=== PATIENT | male | born 1940 | race Caucasian/White ===

== ENCOUNTER 2016-07-27 03:18 | Emergency (ER) | payer OTHER ==
[~2016-07-27] VITALS: Ht 177.8 cm; Wt 104.3 kg
--- NOTE | 2016-07-27 03:47 | ED GI/GU/ABDOMINAL COMPLAINT ---
History of Present Illness General Chief Complaint: Abdominal Pain/Flank Pain Stated Complaint: LEFT SIDE FLANK PAIN X A FEW DAYS WORSE TONIGHT Source: patient, family Exam Limitations: no limitations Vital Signs & Intake/Output Vital Signs & Intake/Output Vital Signs Date Time Temp Pulse Resp B/P Pulse O2 O2 Flow FiO2 Ox Delivery Rate 07/27 0544 98.9 79 18 156/74 96 Room Air 07/27 0333 97.6 82 18 182/96 97 Room Air Allergies Coded Allergies: NO KNOWN ALLERGIES (07/27/16) Reconcile Medications Ibuprofen 600 MG TABLET 1 TAB PO TID PRN PAIN with food Ondansetron (Zofran Odt) 4 MG TAB.RAPDIS 1 TAB SL TID PRN NAUSEA Oxycodone HCl/Acetaminophen (Percocet 5-325 MG Tablet) 5 MG-325 MG TABLET 1 TAB PO 4XDP PRN PAIN TEN...[id number] Sertraline HCl 50 MG TABLET 50 MG PO DAILY ANXIETY (Reported) Tamsulosin HCl (Flomax) 0.4 MG CAP.ER.24H 1 CAP PO DAILY KIDNEY STONE Triage Nurses Notes Reviewed? yes Onset: Gradual Duration: day(s): Timing: recent history Quality/Severity: muscle spasm in the left lower back Location: left lower back left flank Radiation: no radiation Activities at Onset: movement Prior Abdominal Problems: none Modifying Factors: Worsens With: movement, palpation. Associated Symptoms: muscle spasm HPI: 76-year-old gentleman in prior good health presents with left lower back pain for the past 3 days. He states that he saw his primary care doctor and was noted to have microscopic hematuria. He states, "I am a hypochondriac. I became very worried about this. I talked with Dr. Fajardo. He said that was probably fine. He said maybe I had a kidney stone or maybe I had a mass she get a CAT scan." He notes no dysuria nausea vomiting fever diarrhea abdominal pain chest pain shortness of breath. He is otherwise well and has no other concerns. Past History Travel History Traveled to [place] past 21 day No Medical History Any Pertinent Medical History? see below for history Surgical History Surgical History: none Psychosocial History Who do you live with Spouse Services at Home None What is your primary language Frisian Family History Hx Contributory? No Review of Systems Review of Systems Constitutional: Reports: no symptoms. EENTM: Reports: no symptoms. Respiratory: Reports: no symptoms. Cardiovascular: Reports: no symptoms. GI: Reports: no symptoms. Genitourinary: Reports: no symptoms. Musculoskeletal: Reports: no symptoms. Skin: Reports: no symptoms. Neurological/Psychological: Reports: no symptoms. Hematologic/Endocrine: Reports: no symptoms. Immunologic/Allergic: Reports: no symptoms. All Other Systems: Reviewed and Negative Physical Exam Physical Exam General Appearance: well developed/nourished, mild distress Head: atraumatic, normal appearance Eyes: Bilateral: normal appearance. Ears, Nose, Throat, Mouth: hearing grossly normal Neck: normal inspection, supple, full range of motion Respiratory: normal breath sounds, chest non-tender, no respiratory distress, quiet respiration, lungs clear Cardiovascular: regular rate/rhythm Gastrointestinal: normal bowel sounds, soft, non-tender, no organomegaly Back: muscle spasm, no vertebral tenderness, muscle spasm at left lower lumbar region. Extremities: normal range of motion Neurologic/Psych: no motor/sensory deficits, awake, alert, oriented x 3 Skin: intact, normal color, warm/dry Core Measures ACS in differential dx? No Severe Sepsis Present: No Septic Shock Present: No Progress Differential Diagnosis: muscle spasm vs kidney stone vs other. Plan of Care: Orders Procedure Date/time Status URINALYSIS 07/27 326 Complete TROPONIN LEVEL 07/27 326 Complete LIPASE 07/27 326 Complete COMPREHENSIVE METABOLIC PANEL 07/27 326 Complete CBC WITHOUT DIFFERENTIAL 07/27 326 Complete AMYLASE 07/27 326 Complete EKG 07/27 326 Active Laboratory Tests 07/27/16 0406: Anion Gap 12, Estimated GFR > 60, BUN/Creatinine Ratio 20.0, Glucose 121 H, Calcium 10.0, Total Bilirubin 0.7, AST 20, ALT 32, Alkaline Phosphatase 99, Troponin I < 0.01, Total Protein 7.5, Albumin 4.3, Globulin 3.2, Albumin/ Globulin Ratio 1.3, Amylase 86, Lipase 62, CBC w Diff NO MAN DIFF REQ, RBC 4.69 L, MCV 96.8 H, MCH 32.5 H, RDW 12.6, MPV 9.8, Gran % 78.4 H, Lymphocytes % 12.0 L, Monocytes % 8.7, Eosinophils % 0.7, Basophils % 0.2, Absolute Granulocytes 7.9 H, Absolute Lymphocytes 1.2, Absolute Monocytes 0.9 H, Absolute Eosinophils 0.1, Absolute Basophils 0, PUBS MCHC 33.6, Urinalysis LIGHT H, Urine Color ROD, Urine Clarity CLEAR, Urine pH 6.0, Ur Specific [place] >= 1.030, Urine Protein 30 H, Urine Ketones NEG, Urine Nitrite NEG, Urine Bilirubin NEG, Urine Urobilinogen 0.2, Ur Leukocyte Esterase NEG, Ur Microscopic SEDIMENT EXAMINED, Urine RBC 3-5, Urine Crystals 1+ CA OX H, Urine Bacteria FEW H, Hyaline Casts RARE H, Urine Hemoglobin MOD H, Urine Glucose NEG Diagnostic Imaging: Viewed by Me: CT Scan. Discussed w/RAD: CT Scan. Radiology Impression: abd/pelvic ct... left 4mm kidney stone. Initial ED EKG: normal axis, normal intervals, normal p-waves, normal QRS complex, normal sinus rhythm Comments: PATIENT: CARMEL FARIAS PRESENT AGE: 76 PATIENT ACCOUNT NO: [id number] : 41 LOCATION: [facility] ORDERING PHYSICIAN: RAMYA BOYD MD SERVICE DATE: 07/27/16 EXAM TYPE: CAT - CT ABD & PELVIS W/O IV CONTRAS EXAMINATION: CT ABDOMEN AND PELVIS WITHOUT CONTRAST CLINICAL INFORMATION: Left flank pain, question kidney stone COMPARISON: 08/05/2009 TECHNIQUE: Multidetector volumetric imaging was performed from the superior aspect of the liver through the pubic symphysis. Sagittal and coronal reformatted images were obtained on the technologist's workstation. DLP: 1104.08 mGy-cm FINDINGS: LUNG BASES: The visualized lung bases are unremarkable. LIVER, GALLBLADDER, AND BILIARY TREE: The liver is normal in size, shape, and attenuation. No focal hepatic lesion or biliary ductal dilatation is present. The gallbladder is unremarkable with no evidence of radiopaque gallstones, gallbladder wall thickening, or obvious pericholecystic inflammatory changes. PANCREAS: Unremarkable. SPLEEN: Unremarkable. ADRENAL GLANDS: Unremarkable. KIDNEYS AND URETERS: There is a distal left ureteral calculus measuring 4 mm with moderate hydronephrosis and perinephric stranding. There are 2 additional tiny calculi in the left lower pole. There is suggestion of cysts in the left renal sinus. No right-sided hydronephrosis or calculi. There is a mid to lower right renal cyst measuring up to 3.3 cm in diameter. BLADDER: Minimally distended and grossly unremarkable. GASTROINTESTINAL TRACT: A duodenal diverticulum is noted. Colonic diverticulosis is noted. No evidence of bowel obstruction or abnormal wall thickening. No pericolonic inflammation is seen. The appendix is unremarkable. ABDOMINAL WALL: No significant hernia is appreciated. LYMPH NODES: Normal. VASCULAR: Scattered atherosclerotic calcifications are noted. PELVIC VISCERA: Unremarkable. OSSEOUS STRUCTURES: Degenerative changes are noted in the spine. IMPRESSION: 1. Distal left ureteral calculus measuring 4 mm with moderate hydronephrosis. 2. Tiny left lower pole renal calculi. 3. Colonic diverticulosis. DICTATED BY: ALFREDA BURK MD DATE/TIME DICTATED:07/27/16450 TIGHTENER:LAMONT DATE/TIME TRANSCRIBED:07/27/16450 CONFIDENTIAL, DO NOT COPY WITHOUT APPROPRIATE AUTHORIZATION. <Electronically signed in Other Vendor System> SIGNED BY: ALFREDA BURK MD 07/27/16 0501 Departure Departure Disposition: HOME OR SELF CARE Condition: Stable Clinical Impression Primary Impression: Back pain Secondary Impressions: Kidney stone Referrals: RUSTAM FIGUEROA,DANILO Thomas (PCP/Family) Departure Forms: Customer Survey General Discharge Information Prescriptions: Current Visit Scripts Ibuprofen 1 TAB PO TID PRN PAIN #30 TAB with food Tamsulosin HCl (Flomax) 1 CAP PO DAILY #30 CAP Ondansetron (Zofran Odt) 1 TAB SL TID PRN NAUSEA #10 TAB Oxycodone HCl/Acetaminophen (Percocet 5-325 MG Tablet) 1 TAB PO 4XDP PRN PAIN #10 TAB TEN...[id number] Comments 07/27/16, 5:15am.... 4mm kidney stone noted... discussed at length with patient... he is feeling better after toradol... pt safe for discharge. pt referred to urology. Close follow up encouraged.
[2016-07-27 04:14] LABS: ABSOLUTE BASOPHIL COUNT 0 /CUMM (0.0-0.2); ABSOLUTE EOSINOPHIL COUNT 0.1 /CUMM (0.0-0.7); ABSOLUTE GRANULOCYTE CT 7.9 /CUMM (1.4-6.5); ABSOLUTE LYMPH COUNT 1.2 /CUMM (1.2-3.4); ABSOLUTE MONOCYTE COUNT 0.9 /CUMM (0.10-0.60); BASOPHIL % 0.2 % (0.0-2.0); EOSINOPHIL % 0.7 % (0-5); GRANULOCYTE % 78.4 % (42.2-75.2); HEMATOCRIT 45.4 % (42-52); MEAN CORPUSCULAR HGB 32.5 PG (27.0-31.0); MEAN CORPUSCULAR HGB CONC 33.6 G/DL (33.0-37.0); MEAN CORPUSCULAR VOLUME 96.8 FL (80.0-94.0); MEAN PLATELET VOLUME 9.8 FL (7.4-10.4); PLATELET COUNT 215 /CUMM (130-400); RBC DISTRIBUTION WIDTH 12.6 % (11.5-14.5); RED BLOOD CELL CT 4.69 /CUMM (4.70-6.10); WHITE BLOOD CELL COUNT 10.1 /CUMM (4.8-10.8)
--- NOTE | 2016-07-27 05:01 | CT SCAN REPORT ---
EXAMINATION: CT ABDOMEN AND PELVIS WITHOUT CONTRAST CLINICAL INFORMATION: Left flank pain, question kidney stone COMPARISON: 08/05/2009 TECHNIQUE: Multidetector volumetric imaging was performed from the superior aspect of the liver through the pubic symphysis. Sagittal and coronal reformatted images were obtained on the technologist's workstation. DLP: 1104.08 mGy-cm FINDINGS: LUNG BASES: The visualized lung bases are unremarkable. LIVER, GALLBLADDER, AND BILIARY TREE: The liver is normal in size, shape, and attenuation. No focal hepatic lesion or biliary ductal dilatation is present. The gallbladder is unremarkable with no evidence of radiopaque gallstones, gallbladder wall thickening, or obvious pericholecystic inflammatory changes. PANCREAS: Unremarkable. SPLEEN: Unremarkable. ADRENAL GLANDS: Unremarkable. KIDNEYS AND URETERS: There is a distal left ureteral calculus measuring 4 mm with moderate hydronephrosis and perinephric stranding. There are 2 additional tiny calculi in the left lower pole. There is suggestion of cysts in the left renal sinus. No right-sided hydronephrosis or calculi. There is a mid to lower right renal cyst measuring up to 3.3 cm in diameter. BLADDER: Minimally distended and grossly unremarkable. GASTROINTESTINAL TRACT: A duodenal diverticulum is noted. Colonic diverticulosis is noted. No evidence of bowel obstruction or abnormal wall thickening. No pericolonic inflammation is seen. The appendix is unremarkable. ABDOMINAL WALL: No significant hernia is appreciated. LYMPH NODES: Normal. VASCULAR: Scattered atherosclerotic calcifications are noted. PELVIC VISCERA: Unremarkable. OSSEOUS STRUCTURES: Degenerative changes are noted in the spine. IMPRESSION: 1. Distal left ureteral calculus measuring 4 mm with moderate hydronephrosis. 2. Tiny left lower pole renal calculi. 3. Colonic diverticulosis.
[2016-07-27] MEDS ORDERED: IBUPROFEN600 M1 PO (05:20)
[2016-07-27] MEDS ORDERED: FLOMAX0.4 M1 PO (05:20)
[2016-07-27] MEDS ORDERED: ZOFRAN ODT4 M1 SL (05:20)
[2016-07-27] MEDS ORDERED: PERCOCET 5-3251 EACH PO (05:26)
[2016-07-27] MEDS ORDERED: SERTRALINE HCL50 MG PO (05:43)
[2016-07-27 05:44] VITALS: BP 156/74
== END 2016-07-27 05:45 ==
LOC: ERH 03:18
PROVIDERS: Pediatrics
DX: M54.5 Low back pain (principal); N20.0 Calculus of kidney; R31.29 Other microscopic hematuria
CPT/HCPCS: 74176; 81001; 93005; 93010; 96372; J1885

== ENCOUNTER 2016-07-31 15:43 | Emergency (ER) | payer OTHER ==
[~2016-07-31] VITALS: Ht 177.8 cm; Wt 106.6 kg
[~2016-07-31 15:43] MED LIST: FLOMAX0.4 M1 PO; IBUPROFEN600 M1 PO; PERCOCET 5-3251 EACH PO; SERTRALINE HCL50 MG PO; ZOFRAN ODT4 M1 SL
[2016-07-31 15:50] VITALS: BP 175/82
[2016-07-31 16:26] LABS: ABSOLUTE BASOPHIL COUNT 0 /CUMM (0.0-0.2); ABSOLUTE EOSINOPHIL COUNT 0.2 /CUMM (0.0-0.7); ABSOLUTE GRANULOCYTE CT 8.8 /CUMM (1.4-6.5); ABSOLUTE LYMPH COUNT 0.6 /CUMM (1.2-3.4); ABSOLUTE MONOCYTE COUNT 1.2 /CUMM (0.10-0.60); BASOPHIL % 0.2 % (0.0-2.0); EOSINOPHIL % 1.8 % (0-5); GRANULOCYTE % 81.5 % (42.2-75.2); MEAN CORPUSCULAR HGB 32.3 PG (27.0-31.0); MEAN CORPUSCULAR HGB CONC 33.3 G/DL (33.0-37.0); MEAN PLATELET VOLUME 9.8 FL (7.4-10.4); PLATELET COUNT 222 /CUMM (130-400); RBC DISTRIBUTION WIDTH 12.4 % (11.5-14.5); RED BLOOD CELL CT 3.98 /CUMM (4.70-6.10); WHITE BLOOD CELL COUNT 10.9 /CUMM (4.8-10.8)
[2016-07-31 16:29] LABS: HEMATOCRIT 38.6 % (42-52)
--- NOTE | 2016-07-31 17:34 | ED GI/GU/ABDOMINAL COMPLAINT ---
History of Present Illness General Chief Complaint: Abdominal Pain/Flank Pain Stated Complaint: "I WAS HERE SUNDAY, MY KIDNEYS STILL HURT" Source: patient Exam Limitations: no limitations Vital Signs & Intake/Output Vital Signs & Intake/Output Vital Signs Date Time Temp Pulse Resp B/P Pulse O2 O2 Flow FiO2 Ox Delivery Rate 07/31 1550 98.3 114 20 175/82 98 Room Air ED Intake and Output 08/01 0000 07/31 1200 Intake Total Output Total Balance Patient 235 lb Weight Allergies Coded Allergies: NO KNOWN ALLERGIES (07/27/16) Reconcile Medications Ibuprofen 600 MG TABLET 1 TAB PO TID PRN PAIN with food Mometasone Furoate (Nasonex) 50 MCG SPRAY.PUMP 2 SPRAY NASB DAILY CONGESTION Ondansetron (Zofran Odt) 4 MG TAB.RAPDIS 1 TAB SL TID PRN NAUSEA Oxycodone HCl/Acetaminophen (Percocet 5-325 MG Tablet) 5 MG-325 MG TABLET 1 TAB PO 4XDP PRN PAIN TEN...[id number] Sertraline HCl 50 MG TABLET 50 MG PO DAILY ANXIETY (Reported) Simvastatin (Simvastatin*) (Unknown Strength) TABLET (Unknown Dose) PO DAILY CHOLESTEROL (Reported) Tamsulosin HCl (Flomax) 0.4 MG CAP.ER.24H 1 CAP PO DAILY KIDNEY STONE Triage Note: PT TO ED C/O CONTINUED LEFT FLANK PAIN. PT WAS SEEN IN ED, DIAGNOSED WITH KIDNEY STONES. SENT HOME WITH PO MEDS, HAS BEEN TAKING THEM PRESCRIBED. STATES PAIN IS NOT BETTER. PT VERY ANXIUOS IN TRIAGE. DENIES N/V/D. 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 Triage Nurses Notes Reviewed? yes Onset: Abrupt Duration: better Timing: recent history Severity Numbers: 3 Radiation: no radiation HPI: Patient is a 76-year-old male who presents emergency room with concerns today earlier of straps having severe left flank and back pain that has resolved prior to arrival. Patient was evaluated 4 days ago for same symptoms which a CT scan showed a 4 mm stone with hydronephrosis. Patient was discharged safely was given ibuprofen, Percocet, Flomax and Zofran for his symptoms where his pain has come and gone for the past 4 days however currently he has no pain is been symptom-free for the past 4 hours. Patient denies any nausea vomiting Patient is able tolerate by mouth. Patient did not follow-up with urologist Dr. Jacobson. Patient also complains of a one-day history of sinus pressure headaches and not feeling well. Positive sick contacts at home feels much better however Denies any dysuria testicular pain or swelling or current abdominal plain flank pain or back pain fevers or chills (MISA PALUMBO) Past History Travel History Traveled to [place] past 21 day No Medical History Any Pertinent Medical History? see below for history Psychiatric: anxiety, panic attacks Surgical History Surgical History: none Psychosocial History Who do you live with Spouse Services at Home None What is your primary language Korean Tobacco Use: Never used ETOH Use: denies use Illicit Drug Use: denies illicit drug use Family History Hx Contributory? No (MISA PALUMBO) Review of Systems Review of Systems Constitutional: Reports: see HPI. EENTM: Reports: see HPI, nasal congestion. Respiratory: Reports: no symptoms. Cardiovascular: Reports: no symptoms. GI: Reports: see HPI. Genitourinary: Reports: see HPI. Musculoskeletal: Reports: no symptoms. Skin: Reports: no symptoms. Neurological/Psychological: Reports: no symptoms. Hematologic/Endocrine: Reports: no symptoms. Immunologic/Allergic: Reports: no symptoms. All Other Systems: Reviewed and Negative (MISA PALUMBO) Physical Exam Physical Exam General Appearance: no apparent distress, alert, obese Gastrointestinal: normal bowel sounds, soft, non-tender Comments: Well-developed well-nourished person in no acute distress HEENT: Normal EENT exam, extraocular motion intact, no nystagmus. Pupils equally round and reactive to light and accommodation. Nose is atraumatic. External auditory canal and Tympanic membranes clear. Pharynx normal. No swelling or edema. Nontender sinus, NASAL congestion noted Neck: Supple, no lymphadenopathy, normal range of motion without pain or tenderness Back: Nontender, no CVA tenderness. Cardiovascular: Regular rate and rhythms no murmurs rubs or gallops, normal JVP Respiratory: Chest nontender. No respiratory distress.breath sounds clear to auscultation bilaterally Abdomen: Soft, nontender nondistended, no appreciable organomegaly. Normal bowel sounds. No ascites Extremity: No edema, no calf tenderness to palpation, normal and equal pulses. Neuro: Alert oriented x3, motor sensory normal, Skin: No appreciable rash on exposed skin, skin is warm and dry. Psych: Mood and affect is normal, memory and judgment is normal. Core Measures ACS in differential dx? No Severe Sepsis Present: No Septic Shock Present: No (YANA TONY,MISA) Progress Differential Diagnosis: AAA, AMI, appendicitis, biliary colic, bowel obstruction , colon cancer, cholecystitis, diverticulitis, epididymitis, esophageal varices, gastritis, hepatitis, hernia, hemorrhoids, ischemic bowel, inflamm bowel dis, Laura-Ulysses tear, orchitis, pancreatitis, prostatitis, peptic ulcer, PUD/GERD, perforated viscous, pyelonephritis, SBO, testicular torsion, ureterolithiasis, urinary retention, urethritis, UTI/pyelo Plan of Care: Orders Procedure Date/time Status Heart Healthy Diet 08/01 B Active Vital Signs 07/31 1907 Complete Add-on Test (ER Only) 07/31 1849 Active CULTURE,URINE 07/31 1725 Active URINALYSIS 07/31 1554 Complete COMPREHENSIVE METABOLIC PANEL 07/31 1554 Complete CBC WITHOUT DIFFERENTIAL 07/31 1554 Complete Laboratory Tests 07/31/16 1725: Urinalysis LIGHT H, Urine Color YEL, Urine Clarity HAZY H, Urine pH 6.0, Ur Specific [place] 1.025, Urine Protein TRACE H, Urine Ketones NEG, Urine Nitrite NEG, Urine Bilirubin NEG, Urine Urobilinogen 0.2, Ur Leukocyte Esterase MOD H, Ur Microscopic SEDIMENT EXAMINED, Urine RBC 5-10 H, Urine WBC 10-15 H, Ur Epithelial Cells RARE, Urine Bacteria FEW H, Urine Mucus FEW, Urine Hemoglobin SMALL H, Urine Glucose NEG 07/31/16 1600: Anion Gap 12, Estimated GFR 54 L, BUN/Creatinine Ratio 12.3, Glucose 142 H, Calcium 9.2, Total Bilirubin 0.6, AST 15 L, ALT 24, Alkaline Phosphatase 94, Total Protein 6.6, Albumin 3.6, Globulin 3.0, Albumin/Globulin Ratio 1.2, CBC w Diff NO MAN DIFF REQ, RBC 3.98 L, MCV 97.0 H, MCH 32.3 H, RDW 12.4, MPV 9.8, Gran % 81.5 H, Lymphocytes % 5.2 L, Monocytes % 11.3 H, Eosinophils % 1.8, Basophils % 0.2, Absolute Granulocytes 8.8 H, Absolute Lymphocytes 0.6 L, Absolute Monocytes 1.2 H, Absolute Eosinophils 0.2, Absolute Basophils 0, PUBS MCHC 33.3 Microbiology 07/31 1725 URINE ROUT: Urine Culture - RECD Patient currently is in no apparent distress and has nontender abdomen no flank pain no CVA tenderness and shows no physical exam findings currently other retained stone in his kidney. Patient denies any dysuria or urinary tract infection symptoms however urine culture is pending. Patient is able tolerate by mouth. I discussed with patient that his symptoms could most likely be renal colic however urology follow-up is stressed to patient. And I also advised patient to return to emergency room if the renal colic persist. Patient also treated for most likely viral sinusitis and which he has congestion and chills. Upon discharge patient looks well and was laughing and joking and in no apparent distress and has nontender abdomen (MISA PALUMBO) Initial ED EKG: none (MISA PALUMBO) Departure Departure Disposition: HOME OR SELF CARE Condition: Stable Clinical Impression Primary Impression: Sinusitis Secondary Impressions: Renal colic on left side Referrals: RUSTAM FIGUEROA,DANILO Thomas (PCP/Family) EDWARDO FIGUEROA,SOWMYA Additional Instructions: As discussed continue your previously prescribed ibuprofen if needed for pain. Begin your previously prescribed Percocet for breakthrough pain relief and continue medications of Flomax and Zofran for future nausea. Tomorrow follow up and establish urologist Dr. Jacobson for further evaluation treatment. For your sinus symptoms begin the prescription of Nasonex for congestion, over- the-counter Sudafed for congestion, Zyrtec for congestion. Prescriptions are waiting at your pharmacy. Follow up with your primary care doctor on Sunday if no better. If symptoms worsen return to emergency room. Departure Forms: Customer Survey General Discharge Information Prescriptions: Current Visit Scripts Mometasone Furoate (Nasonex) 2 SPRAY NASB DAILY #1 INHAL (MISA PALUMBO) PA/MARKETING REPRESENTATIVE Co-Sign Statement Statement: ED Attending supervision documentation- [] I saw and evaluated the patient. I have also reviewed all the pertinent lab results and diagnostic results. I agree with the findings and the plan of care as documented in the PA's/MARKETING REPRESENTATIVE's documentation. [X] I have reviewed the ED Record and agree with the PA's/MARKETING REPRESENTATIVE's documentation. [] Additions or exceptions (if any) to the PAs/MARKETING REPRESENTATIVE's note and plan are summarized below: [] (MIRLANDE FIGUEROA,DEANA)
[2016-07-31] MEDS ORDERED: SIMVASTATIN5 M2 PO (18:24)
[2016-07-31] MEDS ORDERED: NASONEX17 GM NASB (19:01)
== END 2016-07-31 19:12 ==
LOC: ERH 15:43
PROVIDERS: Emergency Medicine
DX: J32.9 Chronic sinusitis, unspecified (principal); N23 Unspecified renal colic
CPT/HCPCS: 81001; 87086